=== PATIENT | female | born 1980 | race Caucasian/White ===

== ENCOUNTER → 2023-08-29 17:37 | Outpatient (REF) | payer OTHER, SELFPAY | LOC: WDC 17:37 | PROVIDERS: ATTENDING PHYSICIAN Nurse Practitioner Primary Care | DX: Z12.31 Encounter for screening mammogram for malignant neoplasm of breast (principal) | CPT/HCPCS: 77063; 77067 ==

== ENCOUNTER → 2023-10-05 17:36 | Outpatient (REF) | payer OTHER, SELFPAY | LOC: MRI 3T 17:36 | PROVIDERS: ATTENDING PHYSICIAN Nurse Practitioner Primary Care | DX: R20.9 Unspecified disturbances of skin sensation (principal) | CPT/HCPCS: 70553; A9575 ==

== ENCOUNTER 2024-03-18 14:37 | Emergency (ER) | payer OTHER, SELFPAY ==
[2024-03-18 14:42] VITALS: BP 130/88
[2024-03-18 14:57] LABS: % Basophils 0.9 % (0-2); % Eosinophils 1.8 % (0-6); % Immature Granulocytes 0.2 % (0-0.5); % Lymphocytes 24.1 % (20.5-51.1); % Monocytes 5.1 % (1.7-9.3); % Neutrophils 67.9 % (42.2-75.2); Absolute Basophils 0.1 10^3/uL (0-0.2); Absolute Eosinophils 0.2 10^3/uL (0-0.7); Absolute Lymphocytes 2.2 10^3/uL (1.2-3.4); Absolute Monocytes 0.5 10^3/uL (0.1-0.6); Absolute Neutrophils 6.2 10^3/uL (1.4-6.5); Hemoglobin 13.3 g/dL (12.0-16.0); Mean Corp Hgb Conc. 34.1 g/dL (33.0-37.0); Mean Corpuscular Hgb 30.4 pg (27.0-31.0); Mean Corpuscular Volume 89.2 fL (81.0-99.0); Mean Platelet Volume 9.7 fL (7.4-10.4); Nucleated Red Blood Cells % 0 %; Platelet Count 281 10^3/uL (130-400); Red Blood Cell Count 4.37 10^6/uL (4.20-5.40); Red Cell Dist. Width 12.1 % (11.5-14.5); White Blood Cell Count 9.1 10^3/uL (4.8-10.8)
[2024-03-18 15:12] LABS: APTT 27.8 Sec (23.4-35.0); INR 0.99; PT 13.4 Sec (11.4-14.6)
[2024-03-18 15:13] LABS: ALT (SGPT) 19 U/L (0-35); AST (SGOT) 23 U/L (14-36); Albumin 4.6 g/dl (3.5-5.0); Alkaline Phosphatase 60 U/L (38-126); Blood Urea Nitrogen 14 mg/dl (7-17); Calcium 9.6 mg/dl (8.4-10.2); Carbon Dioxide 28 mmol/L (22-30); Chloride 100 mmol/L (98-107); Glucose 95 mg/dl (70-99); Potassium 3.8 mmol/L (3.5-5.1); Sodium 137 mmol/L (135-145); Total Bilirubin 0.7 mg/dl (0.2-1.3); Total Protein 6.9 g/dl (6.3-8.2); eGFR > 60.00
[2024-03-18 15:23] LABS: Troponin I < 0.012 ng/ml
[2024-03-18 16:48] VITALS: BP 114/79
--- NOTE | 2024-03-18 18:09 | ED.GENMED ---
History of Present Illness
General
Chief Complaint: Chest Pain
Time Seen by Provider: 03/18/24 18:03
History of Present Illness
History of Present Illness:
TIME OF INITIAL ENCOUNTER: 6:15 PM
HPI: The patient presents with central chest discomfort slightly more than the left side that started approximately 6 hours ago. She had a similar episode about 3 years ago which was self-limited. She had a stress test last year that she reports
was normal. She has no shortness of breath. She has no known coronary disease. She does have a history of asthma but does not feel that her symptoms are related to asthma and does not feel that she is wheezing.
EXAM:
GENERAL: Well appearing in no distress
HEENT: Moist oral mucosa
CARDIOVASCULAR: No murmurs, normal heart rate, regular rhythm, No chest wall tenderness
PULMONARY: No respiratory distress, breath sounds are clear and equal, she is moving air well, no wheeze
ABDOMEN: Soft with no peritoneal signs, no tenderness
NEUROLOGIC: Excellent strength all extremities, no coordination deficits
PSYCHIATRIC: Appropriate mental status, normal insight and judgement
EXTREMITIES: Nontender, no edema, moves all extremities equally
SKIN: No rash, no lesions
NUMBER AND COMPLEXITY OF PROBLEMS ADDRESSED AT THE ENCOUNTER
� Chronic conditions affecting care: Asthma
� Acute Exacerbation and/or Progression of Chronic Illness: This is an acute problem
� Differential Diagnosis includes: Costochondritis, chest wall pain, asthma exacerbation less likely, very low suspicion for ACS, based on vital signs highly doubt PE
AMOUNT AND/OR COMPLEXITY OF DATA TO BE REVIEWED AND ANALYZED
� I performed an independent evaluation of and my interpretation is:
EKG: Sinus 85, no acute ST abnormality
CT:
X-rays:
Laboratory Studies: CBC, chemistries, troponin all negative
Other:
� Review of other/old records: I reviewed records, the patient had hysteroscopy with endometrial ablation in 2021
� Clinical information was obtained by an independent historian: None needed
� Prescriptions/Medications Considered but not given:
� Further testing considered but not performed: Considered x-ray however the patient tells me that she senses the pain more to the chest wall and it is positional in nature
RISK OF COMPLICATIONS AND/OR MORBIDITY OR MORTALITY OF PATIENT MANAGEMENT
� Social determinants of health affecting care:
� Discussion with other providers:
� Escalation of care including admission/observation vs risk of discharge considered: PERC negative. Very low suspicion for PE. Some reproducible chest wall tenderness. Will try Toradol. Suspect more of a costochondritis type
of picture. Highly doubt ACS. Initial troponin negative but will check another troponin as her symptoms recently started. EKG normal.
ANY OTHER UPDATES:
7:25 PM: The patient reports overall improvement after Toradol was given. She also states that she had a positional component. Recommend NSAIDs. 2 troponins negative. She also wonders if there could be an anxiety component.
Phy Exam
Physical Exam
Physical Exam:
See HPI
Scores
Heart Score for Chest Pain Patients
STEMI patient?: Not applicable
PERC Rule Criteria
Age <50 years: Yes
HR <100 bpm: Yes
Room air oxygen sat >94%: Yes
History of DVT or PE: No
Recent trauma or surgery: No
Hemoptysis: No
Exogenous estrogen: No
Clinical signs suggestive of DVT: No
: No
Considered low risk for PE: Yes
PERC Score: 0
PE can be excluded by PERC: Yes
Course
Orders/Labs/Results
Orders:
Orders
03/18/24 14:39
Electrocardiogram (*1) Urgent
Reason for Study: Chest Pain
EKG- Treatment ONCE
03/18/24 14:49
Complete Blood Count/With Diff Urgent
Comprehensive Metabolic Panel Urgent
Protime/PTT Urgent
Troponin I Urgent
03/18/24 18:16
Electrocardiogram (*1) Urgent
Reason for Study: Chest Pain
EKG- Treatment ONCE
Ketorolac [Toradol] 30 mg IM NOW STA
03/18/24 18:22
Troponin I Urgent
03/18/24 14:49
03/18/24 14:49
Vital Signs
Initial and Last Documented VS:
Initial Vital Signs
Temp Pulse Resp BP Pulse Ox
37.0 C 85 18 130/88 100
03/18/24 14:42 03/18/24 14:42 03/18/24 14:42 03/18/24 14:42 03/18/24 14:42
Last Documented Vital Signs
Temp Pulse Resp BP Pulse Ox
37.0 C 87 16 114/79 99
03/18/24 14:42 03/18/24 16:48 03/18/24 16:48 03/18/24 16:48 03/18/24 16:48
*Critical Care Note
Total Time (30-74mins, 75-104mins- exclusive of procedures): Not Applicable
ED Attending Note
-
Portions of this chart may have been created with voice recognition software.� Occasional wrong word or��sound alike� substitutions may have occurred due to the inherent limitations of voice recognition software.
Discharge Plan
Departure
Patient Disposition: Home (Routine Discharge)
Date of Disposition: 03/18/24
Time of Disposition: 19:12
Patient with high blood pressure during this ER visit?: Yes
Discharge Problem:
Chest pain
Prescriptions:
No Action
Arey
2 tab PO DAILY
multivitamin 1 EACH tablet
1 ea PO DAILY
ascorbic acid (vitamin C) [Vitamin C] 500 MG tablet
500 mg PO DAILY PRN (Reason: 'I take it when kids are sick')
Epidiolex 1 UNIT solution
1 unit PO PRN PRN (Reason: anxiety)
albuterol sulfate 5 MG/ML solution for nebulization
1 puff inhalation PRN PRN (Reason: shortness of breath)
diphenhydramine HCl [Banophen] 25 MG capsule
25 mg PO Q4HPRN PRN (Reason: allergies)
Referrals:
Anamaria Acuña CRNP [Family Provider] -
Activity Restrictions/Additional Instructions:
2 cardiac blood tests are negative for heart attack. Return here if worse or other concerns. EKG is normal.
Interventions
Interventions:
*Risk Screen - Suicide Last Done: 03/18/24 14:42
*General Assessment Last Done: 03/18/24 14:42
*Neglect/Abuse Screening Last Done: 03/18/24 14:42
*ED COVID-19 Vaccine History Last Done: 03/18/24 14:42
Discharge Date and Time
Print Language: PALAUAN
[2024-03-18 18:23] VITALS: BMI 37.5
[2024-03-18] MEDS: TORADOL 30 MG IM (18:49)
[2024-03-18 19:01] LABS: Troponin I < 0.012 ng/ml
== END 2024-03-18 19:50 | disposition home or self-care (01) ==
LOC: EMR 14:37
PROVIDERS: Student in an Organized Health Care Education/Training Program; EMERGENCY PHYSICIAN Emergency Medicine; FAMILY PHYSICIAN Nurse Practitioner Primary Care
DX: R07.89 Other chest pain (principal); J45.909 Unspecified asthma, uncomplicated
CPT/HCPCS: 96372; 99284; 80053; 84484; 85025; 85610; 85730; 93005

== ENCOUNTER → 2024-04-30 16:15 | Outpatient (REF) | payer OTHER, SELFPAY | LOC: RCS 16:15 | PROVIDERS: ATTENDING PHYSICIAN Nurse Practitioner Primary Care | DX: R07.89 Other chest pain (principal); R01.1 Cardiac murmur, unspecified | CPT/HCPCS: 93306 ==

== ENCOUNTER → 2024-07-17 09:38 | Outpatient (REF) | payer OTHER, SELFPAY | LOC: RAD 09:38 | PROVIDERS: ATTENDING PHYSICIAN Internal Medicine Interventional Cardiology; FAMILY PHYSICIAN Nurse Practitioner Primary Care | DX: R07.89 Other chest pain (principal); E78.2 Mixed hyperlipidemia; E66.01 Morbid (severe) obesity due to excess calories; Z87.891 Personal history of nicotine dependence | CPT/HCPCS: 75574; Q9967 ==

== ENCOUNTER → 2024-09-05 10:47 | Outpatient (REF) | payer OTHER, SELFPAY | LOC: WDC 10:47 | PROVIDERS: ATTENDING PHYSICIAN Nurse Practitioner Primary Care | DX: Z12.31 Encounter for screening mammogram for malignant neoplasm of breast (principal) | CPT/HCPCS: 77063; 77067 ==